=== PATIENT | male | born 1980 | race Caucasian/White ===

== ENCOUNTER 2020-05-14 11:10 | Emergency (ER) | payer SELFPAY ==
--- NOTE | 2020-05-14 11:56 | EDM.PDOC ---
ED HPI GENERAL MEDICAL PROBLEM - General Chief Complaint: General Stated Complaint: DIFFICULTY BREATHING POSSIBLE COVID Time Seen by Provider: 05/14/20 11:15 Source of Information: Reports: Patient, Police History Limitations: Reports: No Limitations - History of Present Illness INITIAL COMMENTS - FREE TEXT/NARRATIVE: pt was brought in by [place] police: possible DUI but was not being arrested States she was in contact with his sister who has COVID states 3 days ago he was suicidal and took some pills of zoloft declined to have vitals and labs done ( COVID screen ) ED ROS GENERAL - Review of Systems Review Of Systems: Unable To Obtain (refused) Reason Not Obtained: refused ED EXAM, GENERAL - Physical Exam Exam: Not Obtained (refused) Course - Re-Assessments/Exams Free Text/Narrative Re-Assessment/Exam: 05/14/20 12:57 pt decline to have exam don e Police had to be called Pt left AMA Departure - Departure Time of Disposition: 12:03 Disposition: Against Medical Advice 07 Clinical Impression: Suspected COVID-19 virus infection - Discharge Information *PRESCRIPTION DRUG MONITORING PROGRAM REVIEWED*: Not Applicable *COPY OF PRESCRIPTION DRUG MONITORING REPORT IN PATIENT PAZ: Not Applicable Forms: ED Department Discharge
== END 2020-05-14 12:03 | disposition left against medical advice (07) ==
LOC: FB.ED 11:10
DX: Z53.21 Procedure and treatment not carried out due to patient leaving prior to being seen by health care provider (principal)

== ENCOUNTER 2021-06-29 12:58 | Emergency (ER) | payer OTHER ==
[2021-06-29] MEDS ORDERED: Sodium Chloride 0.9% 10 ML Syringe FLUSH PRN (13:06)
[2021-06-29] MEDS ORDERED: Promethazine 25 MG/ML SDV IM STA (13:07)
[2021-06-29] MEDS ORDERED: Ketorolac 30 MG/ML SDV IVPUSH ONE (13:46)
[2021-06-29] MEDS ORDERED: Cyclobenzaprine 10 MG Tab PO ONE (13:59)
[2021-06-29] MEDS ORDERED: levETIRAcetam 1,500 MG in Sodium Chloride 0.9% 100 ML IV STA (14:27)
[2021-07-04 18:11] LABS: CK-BB 0 % (0); CK-MB 0 % (0-3); CK-MM 100 % (97-100); MACRO TYPE 1 0 % (Not Observed); MACRO TYPE 2 0 % (Not Observed)
== END 2021-06-29 15:36 | disposition home or self-care (01) ==
LOC: FB.ED 12:58
DX: F32.A Depression, unspecified (principal); F41.9 Anxiety disorder, unspecified; R40.4 Transient alteration of awareness
CPT/HCPCS: 36415; 70450; 80053; 80307; 82550; 82552; 84146; 84484; 85025; 93005; 96374; 96375; 99285; A9270; J1885; J1953; J2550; 93010; 99282